=== PATIENT | female | born 1960 | race Caucasian/White ===

== ENCOUNTER → 2017-03-31 | Outpatient (CLI) | payer OTHER ==
--- NOTE | 2017-04-03 10:08 | MM ---
Reason for exam: screening (asymptomatic). Last mammogram was performed 1 year and 4 months ago. History: Patient is postmenopausal. Physical Findings: A clinical breast exam by your physician is recommended on an annual basis and results should be correlated with mammographic findings. MG Screening Mammo w CAD Bilateral CC and MLO view(s) were taken. Prior study comparison: November 23, 2015, bilateral MG 3d screening mammo w/cad. April 24, 2014, bilateral MG screening mammo w CAD. March 27, 2013, bilateral digital screening mammo w/CAD. There are scattered fibroglandular densities. No significant changes when compared with prior studies. ASSESSMENT: Negative, BI-RAD 1 RECOMMENDATION: Routine screening mammogram of both breasts in 1 year.
== END ==
LOC: RADMAMWWP 13:48
PROVIDERS: ATTEND Obstetrics & Gynecology
DX: Z12.31 Encounter for screening mammogram for malignant neoplasm of breast (principal)

== ENCOUNTER → 2019-03-07 | Outpatient (CLI) | payer OTHER ==
--- NOTE | 2019-03-08 17:37 | BD ---
EXAMINATION TYPE: Axial Bone Density DATE OF EXAM: 03/07/2019 COMPARISON: 2013 CLINICAL HISTORY: Height: 63.25 Weight: 171 FRAX RISK QUESTIONS: Alcohol (3 or more units per day): no Family History (Parent hip fracture): no Glucocorticoids (More than 3mos): no (Ex: prednisone, prednisolone, methylprednisolone, dexamethasone, and hydrocortisone). History of Fracture in Adulthood: no Secondary Osteoporosis: 1. Type 1 Diabetes: no 2. Hyperthyroidism: no 3. Menopause before 45: no 4. Malnutrition: no 5. Chronic liver disease: no Rheumatoid Arthritis: no Current Tobacco Use: no RISK FACTORS HISTORY OF: Family History of Osteoporosis: not to knowledge of patient Active: yes Diet low in dairy products/other sources of calcium: at least one serving a day Postmenopausal woman: yes Take estrogen and/or progesterone medications: no Lost more than 2 inches in height since high school: no Frequent falls: no Poor Health: no Hyperparathyroidism: no Adrenal Insufficiency: no MEDICATIONS: Prednisone or other steroids: rarely for cold/cough Thyroid Medications: no Osteoporosis Medications: no Additional Medications: Vitamin D Additional History: EXAM MEASUREMENTS: Bone mineral densitometry was performed using the [employer]ev[employer] System. Bone mineral density as measured about the Lumbar spine is: ----- L1-L4(G/cm2): 1.113 T Score Values are as follows: ----- L2: -0.2 ----- L3: -0.2 ----- L4: -0.6 ----- L1-L4: -0.6 Bone mineral density has: Decreased -4.7% since study of: 04/24/2014 Bone mineral density about the R hip (g/cm2): 0.935 Bone mineral density about the L hip (g/cm2): 0.978 T Score values are as follows: -----R Neck: -0.7 -----L Neck: -0.4 -----R Total: -0.6 -----L Total: -0.3 Bone mineral density has: Decreased -6.8% since study of: 04/24/2014 IMPRESSION: Normal (Values between +1 and -1 indicate normal bone mass). Consider repeating this study in 5 year s or sooner if there is some new clinical indication. NOTE: T-SCORE=SD OF THE YOUNG ADULT MEAN.
--- NOTE | 2019-03-11 10:01 | MM ---
Reason for exam: screening (asymptomatic). Last mammogram was performed 1 year and 11 months ago. History: Patient is postmenopausal. Physical Findings: A clinical breast exam by your physician is recommended on an annual basis and results should be correlated with mammographic findings. MG Screening Mammo w CAD Bilateral CC and MLO view(s) were taken. Prior study comparison: March 31, 2017, bilateral MG screening mammo w CAD. November 23, 2015, bilateral MG 3d screening mammo w/cad. There are scattered fibroglandular densities. No significant changes when compared with prior studies. ASSESSMENT: Benign, BI-RAD 2 RECOMMENDATION: Routine screening mammogram of both breasts in 1 year.
== END | disposition home or self-care (01) ==
LOC: RADMAMWWP 13:48
PROVIDERS: ATTEND Obstetrics & Gynecology
DX: Z12.31 Encounter for screening mammogram for malignant neoplasm of breast (principal); N95.1 Menopausal and female climacteric states
CPT/HCPCS: 77067; 77080

== ENCOUNTER 2020-01-15 07:55 | Day surgery (SDC) | payer OTHER ==
[2020-01-13 14:36] VITALS: BMI 29.3
[~2020-01-15 07:55] MED LIST: LACTATED RINGERS 1,000 ML IV SCH
[2020-01-15 08:13] VITALS: TEMP 97.2
[2020-01-15] MEDS ORDERED: LIDOCAINE 1% INJ 10MG/ML (20 ML MDV) ONE (09:08)
[2020-01-15] MEDS ORDERED: PROPOFOL 10 MG/ML 20 ML VIAL IV ONE (09:08)
--- NOTE | 2020-01-15 09:42 | P.PCN ---
Date of Procedure: 01/15/20 Procedure(s) Performed: Brief history: Patient is a pleasant 60-year-old white female scheduled for an elective upper endoscopy as well as colonoscopy as a part of evaluation of intermittent dysphagia to solids and screening for colorectal neoplasia Procedure performed: Esophagogastroduodenoscopy with biopsy Colonoscopy Preoperative diagnosis: Intermittent dysphagia to solids Screening for colon cancer Anesthesia: MAC Procedure: After informed consent was obtained from the patient was brought into the endoscopy unit and IV sedation was administered by anesthesia under continuous monitoring. Initially upper endoscopy was done. The Olympus GF 160 video endoscope was inserted inserted into the mouth and esophagus intubated without any difficulty and was gradually advanced into the stomach and duodenum and carefully examined. The bulb and second part of the duodenum appeared normal. The scope was then withdrawn into the stomach adequately insufflated with air and upon careful examination the antrum and body, cardia and fundus appeared normal. Multiple small gastric polyps which were biopsied. The scope was then withdrawn into the esophagus. Small hiatal hernia noted. The GE junction was located at 35 cm to the incisors. There was early distal esophageal stricture identified. There were linear erosions and superficial ulcerations proximal to the GE junction consistent with LA grade C reflux esophagitis.. Rest of the esophagus appeared normal. Patient tolerated the procedure well. At this time the patient continued to remain sedation. Initial digital rectal examination was normal. Olympus CF 160 video colonoscope was then inserted into the rectum and gradually advanced to the cecum without any difficulty. Careful examination was performed as the scope was gradually being withdrawn. The prep was excellent. The cecum, ascending colon, transverse colon, descending colon, sigmoid colon and rectum appeared normal. Retroflexion was performed in the rectum and no lesions were noted. Patient tolerated the procedure well. Impression: 1. Upper endoscopy revealed linear erosions and ulcerations in the distal esophagus consistent with LA grade C reflux esophagitis, small hiatal hernia and gastric polyps 2. Colonoscopy was within normal limits with no evidence of colorectal neoplasia Recommendations: Findings of this examination were discussed with the patient as well as her family. She'll follow with the biopsy results. She'll be started on Prilosec 20 mg twice daily for 8 weeks and she'll be seen in office. She was briefly educated about diet modification antireflux measures. She was advised to have a repeat screening colonoscopy in 10 years.
[2020-01-15 09:51] VITALS: RESP 16
[2020-01-15 10:00] VITALS: BP 123/73; PULSE 79
== END 2020-01-15 10:40 | disposition home or self-care (01) ==
LOC: ORWHC2ENDO 07:55
PROVIDERS: ATTEND Internal Medicine Gastroenterology
DX: Z12.11 Encounter for screening for malignant neoplasm of colon (principal); K31.7 Polyp of stomach and duodenum; K44.9 Diaphragmatic hernia without obstruction or gangrene; R13.10 Dysphagia, unspecified; K22.2 Esophageal obstruction; K22.10 Ulcer of esophagus without bleeding; K21.9 Gastro-esophageal reflux disease without esophagitis; J45.909 Unspecified asthma, uncomplicated; F41.9 Anxiety disorder, unspecified; Z79.899 Other long term (current) drug therapy; Z90.49 Acquired absence of other specified parts of digestive tract; Z98.890 Other specified postprocedural states; Z90.89 Acquired absence of other organs; Z87.448 Personal history of other diseases of urinary system; Z94.81 Bone marrow transplant status
CPT/HCPCS: 45378; 43239; 88305; J2001; J2704

== ENCOUNTER 2020-02-25 22:56 | Inpatient (IN) | payer OTHER ==
[2020-02-25] MEDS ORDERED: SODIUM CHLORIDE 0.9% 500 ML 500 ML IV ONE (23:30)
--- NOTE | 2020-02-25 23:35 | ED ---
Altered Mental Status HPI - General Chief Complaint: Altered Mental Status Stated Complaint: Altered Mental Status Time Seen by Provider: 02/25/20 23:00 Source: patient, EMS Mode of arrival: EMS Limitations: altered mental status - History of Present Illness Initial Comments: This patient is a 60-year-old woman who presents to be evaluated for a change in mental status. When I asked the patient, she states that she is not sure why she is here. She thinks she may have been having some anxiety. The patient's relates that the patient has been more forgetful over the past 3 or 4 days. She had an episode tonight where she seemed very stressed and tearful and she was more confused than usual. They do note that the patient had started Xanax for anxiety within the past couple of weeks or so. The remainder the review of systems is negative. MD Complaint: altered mental status, confusion -: days(s) Consistency of Symptoms: waxing and waning Context: change in medication Associated Symptoms: denies other symptoms - Related Data Home Medications Medication Instructions Recorded Confirmed Albuterol Inhaler [Ventolin Hfa 1 puff INHALATION RT-TID 01/13/20 02/26/20 Inhaler] Cholecalciferol [Vitamin D3] 400 unit PO DAILY 01/13/20 02/26/20 Cranberry Fruit Extract [Cranberry] 500 mg PO DAILY 01/13/20 02/26/20 ALPRAZolam [Xanax] 0.25 mg PO TID PRN 02/26/20 02/26/20 [place]-3 Fatty Acids/Fish Oil [Fish 1 cap PO DAILY 02/26/20 02/26/20 Oil 1,000 mg Softgel] Omeprazole [PriLOSEC] 20 mg PO AC-BID 02/26/20 02/26/20 Previous Rx's Medication Instructions Recorded Aspirin 81 mg PO DAILY #30 tab 02/26/20 Atorvastatin [Lipitor] 20 mg PO DAILY #30 tab 02/26/20 busPIRone HCl [Buspar] 10 mg PO DAILY #30 tab 02/26/20 Allergies Allergy/AdvReac Type Severity Reaction Status Date / Time No Known Allergies Allergy Verified 02/26/20 08:25 Review of Systems ROS Statement: Those systems with pertinent positive or pertinent negative responses have been documented in the HPI. ROS Other: All systems not noted in ROS Statement are negative. Constitutional: Denies: fever, chills Respiratory: Denies: cough, dyspnea Cardiovascular: Denies: chest pain, edema, syncope Gastrointestinal: Reports: nausea, vomiting, diarrhea, other (Patient did have some vomiting and diarrhea approximately 2 or 3 days ago). Denies: abdominal pain, hematemesis, melena, hematochezia Genitourinary: Denies: dysuria, hematuria Musculoskeletal: Denies: back pain Skin: Denies: rash Neurological: Reports: confusion. Denies: headache, weakness, numbness Past Medical History Past Medical History: Asthma, GERD/Reflux Additional Past Medical History / Comment(s): DYSPHAGIA, Hemorrhoids History of Any Multi-Drug Resistant Organisms: None Reported Past Surgical History: Appendectomy, Tonsillectomy Additional Past Surgical History / Comment(s): MULT EAR SX CHARISMA EARS, EGD Past Anesthesia/Blood Transfusion Reactions: No Reported Reaction Additional Past Anesthesia/Blood Transfusion Reaction / Comment(s): Takes longer to wake up. Past Psychological History: Anxiety Past Alcohol Use History: Occasional Past Drug Use History: None Reported - Past Family History Mother Family Medical History: Cancer General Exam Limitations: altered mental status General appearance: alert, in no apparent distress, anxious Head exam: Present: atraumatic, normocephalic Eye exam: Present: normal appearance. Absent: scleral icterus, conjunctival injection ENT exam: Present: normal oropharynx Neck exam: Present: normal inspection, full ROM Respiratory exam: Present: normal lung sounds bilaterally. Absent: respiratory distress, wheezes, rales, rhonchi, stridor Cardiovascular Exam: Present: regular rate, normal rhythm, normal heart sounds. Absent: systolic murmur, diastolic murmur, rubs, gallop GI/Abdominal exam: Present: soft. Absent: distended, tenderness, guarding, rebound, rigid, mass, pulsatile mass Extremities exam: Present: normal inspection, normal capillary refill. Absent: pedal edema, calf tenderness Neurological exam: Present: alert, oriented X3, CN II-XII intact. Absent: motor sensory deficit Psychiatric exam: Present: anxious Skin exam: Present: warm, dry, intact, normal color. Absent: rash Course Vital Signs 02/25/20 02/26/20 02/26/20 22:57 02:24 02:50 Temperature 98.1 F 98.1 F Pulse Rate 103 H Pulse Rate [ 100 100 Pulse Oximetery ] Respiratory 20 18 19 Rate Blood Pressure 122/63 Blood Pressure 127/81 [Right Arm] O2 Sat by Pulse 97 98 Oximetry 02/26/20 02/26/20 02/26/20 03:17 08:15 11:35 Temperature 97.6 F 98.7 F 98.7 F Pulse Rate Pulse Rate [ 95 100 92 Pulse Oximetery ] Respiratory 19 18 18 Rate Blood Pressure Blood Pressure 135/79 125/73 102/47 [Right Arm] O2 Sat by Pulse 98 97 96 Oximetry 02/26/20 02/26/20 02/26/20 12:07 12:17 15:30 Temperature 98.3 F Pulse Rate 100 92 Pulse Rate [ 80 Pulse Oximetery ] Respiratory 18 Rate Blood Pressure Blood Pressure 117/72 [Right Arm] O2 Sat by Pulse 98 Oximetry Medical Decision Making - Lab Data Result diagrams: 02/25/20 23:34 02/25/20 23:34 Lab Results 02/25/20 02/25/20 02/25/20 Range/Units 23:34 23:34 23:34 WBC 8.0 (3.8-10.6) k/uL RBC 4.42 (3.80-5.40) m/uL Hgb 12.6 (11.4-16.0) gm/dL Hct 40.4 (34.0-46.0) % MCV 91.4 (80.0-100.0) fL MCH 28.5 (25.0-35.0) pg MCHC 31.2 (31.0-37.0) g/dL RDW 13.3 (11.5-15.5) % Plt Count 307 (150-450) k/uL Neutrophils % Not Reportable Neutrophils % (Manual) 64 % Band Neutrophils % 1 % Lymphocytes % Not Reportable Lymphocytes % (Manual) 27 % Monocytes % Not Reportable Monocytes % (Manual) 6 % Eosinophils % Not Reportable Eosinophils % (Manual) 2 % Basophils % Not Reportable Neutrophils # Not Reportable Neutrophils # (Manual) 5.20 (1.3-7.7) k/uL Lymphocytes # Not Reportable Lymphocytes # (Manual) 2.16 (1.0-4.8) k/uL Monocytes # Not Reportable Monocytes # (Manual) 0.48 (0-1.0) k/uL Eosinophils # Not Reportable Eosinophils # (Manual) 0.16 (0-0.7) k/uL Basophils # Not Reportable Nucleated RBCs 0 (0-0) /100 WBC Manual Slide Review Performed PT 10.2 (9.0-12.0) sec INR 1.0 (<1.2) APTT 22.7 (22.0-30.0) sec Sodium (137-145) mmol/L Potassium (3.5-5.1) mmol/L Chloride (98-107) mmol/L Carbon Dioxide (22-30) mmol/L Anion Gap mmol/L BUN (7-17) mg/dL Creatinine (0.52-1.04) mg/dL Est GFR (CKD-EPI)AfAm (>60 ml/min/1.73 sqM) Est GFR (CKD-EPI)NonAf (>60 ml/min/1.73 sqM) Glucose (74-99) mg/dL POC Glucose (mg/dL) (75-99) mg/dL POC Glu Hydraulic Riveter ID Calcium (8.4-10.2) mg/dL Total Bilirubin (0.2-1.3) mg/dL AST (14-36) U/L ALT (4-34) U/L Alkaline Phosphatase (38-126) U/L Ammonia (<30) umol/L Troponin I (0.000-0.034) ng/mL Total Protein (6.3-8.2) g/dL Albumin (3.5-5.0) g/dL Urine Color Light Yellow Urine Appearance Cloudy H (Clear) Urine pH 6.0 (5.0-8.0) Ur Specific [place] 1.008 (1.001-1.035) Urine Protein Negative (Negative) Urine Glucose (UA) Negative (Negative) Urine Ketones Trace H (Negative) Urine Blood Small H (Negative) Urine Nitrite Negative (Negative) Urine Bilirubin Negative (Negative) Urine Urobilinogen <2.0 (<2.0) mg/dL Ur Leukocyte Esterase Moderate H (Negative) Urine RBC 6 H (0-5) /hpf Urine WBC 17 H (0-5) /hpf Ur Squamous Epith Cells 1 (0-4) /hpf Urine Bacteria Occasional H (None) /hpf Urine Mucus Rare H (None) /hpf Urine Opiates Screen Not Detected (NotDetected) Ur Oxycodone Screen Not Detected (NotDetected) Urine Methadone Screen Not Detected (NotDetected) Ur Propoxyphene Screen Not Detected (NotDetected) Ur Barbiturates Screen Not Detected (NotDetected) U Tricyclic Antidepress Not Detected (NotDetected) Ur Phencyclidine Scrn Not Detected (NotDetected) Ur Amphetamines Screen Not Detected (NotDetected) U Methamphetamines Scrn Not Detected (NotDetected) U Benzodiazepines Scrn Detected H (NotDetected) Urine Cocaine Screen Not Detected (NotDetected) U Marijuana (THC) Screen Not Detected (NotDetected) Serum Alcohol mg/dL 02/25/20 02/25/20 02/25/20 Range/Units 23:34 23:34 23:34 WBC (3.8-10.6) k/uL RBC (3.80-5.40) m/uL Hgb (11.4-16.0) gm/dL Hct (34.0-46.0) % MCV (80.0-100.0) fL MCH (25.0-35.0) pg MCHC (31.0-37.0) g/dL RDW (11.5-15.5) % Plt Count (150-450) k/uL Neutrophils % Neutrophils % (Manual) % Band Neutrophils % % Lymphocytes % Lymphocytes % (Manual) % Monocytes % Monocytes % (Manual) % Eosinophils % Eosinophils % (Manual) % Basophils % Neutrophils # Neutrophils # (Manual) (1.3-7.7) k/uL Lymphocytes # Lymphocytes # (Manual) (1.0-4.8) k/uL Monocytes # Monocytes # (Manual) (0-1.0) k/uL Eosinophils # Eosinophils # (Manual) (0-0.7) k/uL Basophils # Nucleated RBCs (0-0) /100 WBC Manual Slide Review PT (9.0-12.0) sec INR (<1.2) APTT (22.0-30.0) sec Sodium 139 (137-145) mmol/L Potassium 3.7 (3.5-5.1) mmol/L Chloride 105 (98-107) mmol/L Carbon Dioxide 25 (22-30) mmol/L Anion Gap 9 mmol/L BUN 14 (7-17) mg/dL Creatinine 0.73 (0.52-1.04) mg/dL Est GFR (CKD-EPI)AfAm >90 (>60 ml/min/1.73 sqM) Est GFR (CKD-EPI)NonAf 89 (>60 ml/min/1.73 sqM) Glucose 103 H (74-99) mg/dL POC Glucose (mg/dL) (75-99) mg/dL POC Glu Hydraulic Riveter ID Calcium 9.0 (8.4-10.2) mg/dL Total Bilirubin 0.4 (0.2-1.3) mg/dL AST 22 (14-36) U/L ALT 18 (4-34) U/L Alkaline Phosphatase 97 (38-126) U/L Ammonia <9 (<30) umol/L Troponin I 0.098 H* (0.000-0.034) ng/mL Total Protein 5.8 L (6.3-8.2) g/dL Albumin 3.3 L (3.5-5.0) g/dL Urine Color Urine Appearance (Clear) Urine pH (5.0-8.0) Ur Specific [place] (1.001-1.035) Urine Protein (Negative) Urine Glucose (UA) (Negative) Urine Ketones (Negative) Urine Blood (Negative) Urine Nitrite (Negative) Urine Bilirubin (Negative) Urine Urobilinogen (<2.0) mg/dL Ur Leukocyte Esterase (Negative) Urine RBC (0-5) /hpf Urine WBC (0-5) /hpf Ur Squamous Epith Cells (0-4) /hpf Urine Bacteria (None) /hpf Urine Mucus (None) /hpf Urine Opiates Screen (NotDetected) Ur Oxycodone Screen (NotDetected) Urine Methadone Screen (NotDetected) Ur Propoxyphene Screen (NotDetected) Ur Barbiturates Screen (NotDetected) U Tricyclic Antidepress (NotDetected) Ur Phencyclidine Scrn (NotDetected) Ur Amphetamines Screen (NotDetected) U Methamphetamines Scrn (NotDetected) U Benzodiazepines Scrn (NotDetected) Urine Cocaine Screen (NotDetected) U Marijuana (THC) Screen (NotDetected) Serum Alcohol <10 mg/dL 02/26/20 Range/Units 00:02 WBC (3.8-10.6) k/uL RBC (3.80-5.40) m/uL Hgb (11.4-16.0) gm/dL Hct (34.0-46.0) % MCV (80.0-100.0) fL MCH (25.0-35.0) pg MCHC (31.0-37.0) g/dL RDW (11.5-15.5) % Plt Count (150-450) k/uL Neutrophils % Neutrophils % (Manual) % Band Neutrophils % % Lymphocytes % Lymphocytes % (Manual) % Monocytes % Monocytes % (Manual) % Eosinophils % Eosinophils % (Manual) % Basophils % Neutrophils # Neutrophils # (Manual) (1.3-7.7) k/uL Lymphocytes # Lymphocytes # (Manual) (1.0-4.8) k/uL Monocytes # Monocytes # (Manual) (0-1.0) k/uL Eosinophils # Eosinophils # (Manual) (0-0.7) k/uL Basophils # Nucleated RBCs (0-0) /100 WBC Manual Slide Review PT (9.0-12.0) sec INR (<1.2) APTT (22.0-30.0) sec Sodium (137-145) mmol/L Potassium (3.5-5.1) mmol/L Chloride (98-107) mmol/L Carbon Dioxide (22-30) mmol/L Anion Gap mmol/L BUN (7-17) mg/dL Creatinine (0.52-1.04) mg/dL Est GFR (CKD-EPI)AfAm (>60 ml/min/1.73 sqM) Est GFR (CKD-EPI)NonAf (>60 ml/min/1.73 sqM) Glucose (74-99) mg/dL POC Glucose (mg/dL) 114 H (75-99) mg/dL POC Glu Hydraulic Riveter ID [place] Calcium (8.4-10.2) mg/dL Total Bilirubin (0.2-1.3) mg/dL AST (14-36) U/L ALT (4-34) U/L Alkaline Phosphatase (38-126) U/L Ammonia (<30) umol/L Troponin I (0.000-0.034) ng/mL Total Protein (6.3-8.2) g/dL Albumin (3.5-5.0) g/dL Urine Color Urine Appearance (Clear) Urine pH (5.0-8.0) Ur Specific [place] (1.001-1.035) Urine Protein (Negative) Urine Glucose (UA) (Negative) Urine Ketones (Negative) Urine Blood (Negative) Urine Nitrite (Negative) Urine Bilirubin (Negative) Urine Urobilinogen (<2.0) mg/dL Ur Leukocyte Esterase (Negative) Urine RBC (0-5) /hpf Urine WBC (0-5) /hpf Ur Squamous Epith Cells (0-4) /hpf Urine Bacteria (None) /hpf Urine Mucus (None) /hpf Urine Opiates Screen (NotDetected) Ur Oxycodone Screen (NotDetected) Urine Methadone Screen (NotDetected) Ur Propoxyphene Screen (NotDetected) Ur Barbiturates Screen (NotDetected) U Tricyclic Antidepress (NotDetected) Ur Phencyclidine Scrn (NotDetected) Ur Amphetamines Screen (NotDetected) U Methamphetamines Scrn (NotDetected) U Benzodiazepines Scrn (NotDetected) Urine Cocaine Screen (NotDetected) U Marijuana (THC) Screen (NotDetected) Serum Alcohol mg/dL - EKG Data -: EKG Interpreted by Me EKG shows normal: sinus rhythm (With one PVC, rate 97 bpm), axis (Normal), intervals (VT interval 126 ms, QTC 533 ms, both normal. QRS duration 140 ms, prolonged consistent with right bundle-branch block), QRS complexes (Right bundle-branch block morphology), ST-T waves (Normal) Disposition Clinical Impression: Elevated troponin I level Narrative: Possible NSTEMI Disposition: ADMITTED IP TO [facility] Condition: Fair Is patient prescribed a controlled substance at d/c from ED?: No
[2020-02-25 23:52] LABS: HCT 40.4 % (34.0-46.0); HGB 12.6 gm/dL (11.4-16.0); MCH 28.5 pg (25.0-35.0); MCHC 31.2 g/dL (31.0-37.0); MCV 91.4 fL (80.0-100.0); Mean Platelet Volume 7.5; Platelet Count 307 k/uL (150-450); RBC 4.42 m/uL (3.80-5.40); RDW 13.3 % (11.5-15.5)
[2020-02-26] LABS: Appearance,Urine Cloudy (Clear); Bacteria,Urine Occasional /hpf; Bilirubin,Urine Negative (Negative); Blood,Urine Small (Negative); Color,Urine Light Yellow; Glucose,Urine (UA) Negative (Negative); Ketones,Urine Trace (Negative); Leukocyte Esterase,Urine Moderate (Negative); Mucus,Urine Rare /hpf; Nitrite,Urine Negative (Negative); Protein,Urine Negative (Negative); RBC,Urine 6 /hpf (0-5); Specific Gravity,Urine 1.008 (1.001-1.035); Squamous Epithelial Cell,Urine 1 /hpf (0-4); Urobilinogen,Urine <2.0 mg/dL (<2.0); WBC,Urine 17 /hpf (0-5)
[2020-02-26 00:02] LABS: ALT 18 U/L (4-34); AST 22 U/L (14-36); African American GFR (CKD) >90 (>60 ml/min/1.73 sqM); Albumin 3.3 g/dL (3.5-5.0); Alcohol <10 mg/dL; Alkaline Phosphatase 97 U/L (38-126); Anion Gap 9 mmol/L; Blood Urea Nitrogen 14 mg/dL (7-17); Carbon Dioxide 25 mmol/L (22-30); Chloride 105 mmol/L (98-107); Glucose 103 mg/dL (74-99); Non-African American GFR(CKD) 89 (>60 ml/min/1.73 sqM); Potassium 3.7 mmol/L (3.5-5.1); Sodium 139 mmol/L (137-145); Total Bilirubin 0.4 mg/dL (0.2-1.3); Total Protein 5.8 g/dL (6.3-8.2)
[2020-02-26 00:05] LABS: Partial Thromboplastin Time 22.7 sec (22.0-30.0); Prothrombin Time 10.2 sec (9.0-12.0)
[2020-02-26 00:05] LABS: Glucose,Whole Blood 114 mg/dL (75-99)
[2020-02-26 00:09] LABS: Amphetamine Screen,Urine Not Detected (NotDetected); Barbiturate Screen,Urine Not Detected (NotDetected); Benzodiazepines Screen,Urine Detected (NotDetected); Cocaine Screen,Urine Not Detected (NotDetected); Methadone Screen, Urine Not Detected (NotDetected); Opiate Screen,Urine Not Detected (NotDetected); Oxycodone Screen, Urine Not Detected (NotDetected); Phencyclidine Screen,Urine Not Detected (NotDetected); Tricyclic Antidepressant,Urine Not Detected (NotDetected); Urn Cannabinoid Scrn Not Detected (NotDetected)
--- NOTE | 2020-02-26 00:31 | CT ---
EXAMINATION TYPE: CT brain wo con DATE OF EXAM: 02/26/2020 COMPARISON: None HISTORY: AMS CT DLP: 1142.4 mGycm Automated exposure control for dose reduction was used. Ventricles have normal size. There is no mass effect nor midline shift. There is no sign of intracran ial hemorrhage. Calvarium is intact. There is no evidence of cerebral edema. IMPRESSION: Negative unenhanced head CT scan.
--- NOTE | 2020-02-26 00:32 | XR ---
EXAMINATION TYPE: XR chest 2V DATE OF EXAM: 02/26/2020 COMPARISON: NONE HISTORY: Altered mental status TECHNIQUE: 2 views FINDINGS: There is no heart failure nor confluent pneumonic infiltrate. There are no hilar masses. Th ere are chest leads. There is small linear density at the lateral left lung base. Bony thorax is inta ct. IMPRESSION: Minimal subsegmental atelectasis left lung base. Otherwise negative exam. Normal heart.
[2020-02-26 00:38] LABS: Band Neutrophils % 1 %; Eosinophils # (M) 0.16 k/uL (0-0.7); Lymphocytes # (M) 2.16 k/uL (1.0-4.8); Monocytes # (M) 0.48 k/uL (0-1.0); Neutrophils % (M) 64 %; Nucleated Red Blood Cells 0 /100 WBC (0-0); Total Cells Counted 100
[2020-02-26] MEDS ORDERED: ENOXAPARIN 80 MG/0.8 ML SYRINGE SQ STA (01:03)
[2020-02-26] MEDS ORDERED: SULFAMETHOX-TMP 800-160MG 1 EACH TAB PO STA (01:04)
[2020-02-26] MEDS ORDERED: NITROGLYCERIN SL TABS 0.4 MG TAB SUBLINGUAL PRN (01:06)
--- NOTE | 2020-02-26 03:46 | P.HPIM ---
History of Present Illness H&P Date: 02/26/20 Chief Complaint: confusion 60-year-old female with no significant past medical history Patient comes in with her who reported that the patient has been forgetful very anxious and restless over the past 3-4 days. Upon further questioning it seems like she is having some social issues at home where her son of 29-year-old is leaving the house and the mother is extremely worried about him that she admits that she worries about a lot of things that she recognizes s ometimes it is unreasonable to be worried about. Her reported that she's been forgetting fridge door open, the stove on and that's unusual of her. She otherwise denies any chest pain headache fevers chills denies any upper respiratory infection like symptoms denies any coughing nausea vomiting abdominal pain or GI bleeding. However she does report that she gets attacks of palpitations and sometimes when the anxiety kicks in she gets a panic attack and feels some difficulty breathing she's been prescribed some Xanax about a month ago that she's been using without much help.. She denies any recent traveling hospitalization or sick contacts. Upon further evaluation in the ED she was found to have elevated troponins she currently denies any chest pain EKG showed right bundle branch block and tachycardia patient admitted for close monitoring and ruling out ACS Review of Systems Pertinent positives as noted in HPI. All other systems were reviewed and are negative Past Medical History Past Medical History: Asthma, GERD/Reflux Additional Past Medical History / Comment(s): DYSPHAGIA, Hemorrhoids History of Any Multi-Drug Resistant Organisms: None Reported Past Surgical History: Appendectomy, Tonsillectomy Additional Past Surgical History / Comment(s): MULT EAR SX CHARISMA EARS, EGD Past Anesthesia/Blood Transfusion Reactions: No Reported Reaction Additional Past Anesthesia/Blood Transfusion Reaction / Comment(s): Takes longer to wake up. Past Psychological History: Anxiety Additional Psychological History / Comment(s): pt was started on xanax 2 weeks ago for anxiety. Smoking Status: Never smoker Past Drug Use History: None Reported - Past Family History Mother Family Medical History: Cancer Medications and Allergies Home Medications Medication Instructions Recorded Confirmed Type valACYclovir HCL [Valacyclovir] 500 mg PO DAILY PRN 10/16/14 01/15/20 History Albuterol Inhaler [Ventolin Hfa 1 puff INHALATION RT-TID 01/13/20 01/15/20 History Inhaler] Cholecalciferol [Vitamin D3] 400 unit PO DAILY@1200 01/13/20 01/13/20 History Clotrimazole 10 mg MUCOUS MEM 5XD 01/13/20 01/15/20 History Cranberry Fruit Extract [Cranberry] 500 mg PO DAILY 01/13/20 01/13/20 History Nystatin [Nystop] 1 applic TOPICAL BID 01/13/20 01/13/20 History busPIRone HCL 10 mg PO DAILY 01/13/20 01/15/20 History Allergies Allergy/AdvReac Type Severity Reaction Status Date / Time No Known Allergies Allergy Verified 02/25/20 23:05 Physical Exam Vitals: Vital Signs Temp Pulse Pulse Resp BP BP Pulse Ox 02/26/20 03:17 97.6 F 95 19 135/79 98 02/26/20 02:50 100 19 02/26/20 02:24 98.1 F 100 18 127/81 98 02/25/20 22:57 98.1 F 103 H 20 122/63 97 Intake and Output 02/25/20 02/25/20 02/26/20 14:59 22:59 06:59 Intake Total 0 Balance 0 Intake: Oral 0 Other: Voiding Method Toilet # Voids 1 Weight 76.204 kg 76.5 kg Constitutional: No acute distress, conversant, pleasant Eyes: Anicteric sclerae, moist conjunctiva, Pupils equal round reactive to light ENMT: NC/AT Oropharynx clear, no erythema, or exudates Neck: Supple, FROM, no masses, or JVD No carotid bruits No thyromegaly Lungs: Clear to auscultation Clear to percussion Normal respiratory effort, no accessory muscle use Cardiovascular: Heart regular in rate and rhythm, No murmurs, gallops, or rubs No peripheral edema Abdominal: Soft Nontender, no guarding, rebound or rigidity Abdomen moving with respiration Normoactive bowel sounds No hepatomegaly, No splenomegaly No palpable mass No abdominal wall hernia noted Skin: Normal temperature, tone, texture, turgor No induration No subcutaneous nodules No rash, lesions No ulcers Extremities: No digital cyanosis No clubbing Pedal pulses intact and symmetrical Radial pulses intact and symmetrical No calf tenderness Psychiatric: Alert and oriented to person, place and time Appropriate affect fair judgement Neuro Muscles Strength 5/5 in all 4 extremities Sensation to light touch grossly present throughout Cranial nerves II-XII grossly intact No focal sensory deficits Lymphatics: no palpable cervical or supraclavicular , or inguinal lymph nodes Results CBC & Chem 7: 02/25/20 23:34 02/25/20 23:34 Labs: Abnormal Lab Results - Last 24 Hours (Table) 02/25/20 02/25/20 02/25/20 Range/Units 23:34 23:34 23:34 Glucose 103 H (74-99) mg/dL POC Glucose (mg/dL) (75-99) mg/dL Troponin I 0.098 H* (0.000-0.034) ng/mL Total Protein 5.8 L (6.3-8.2) g/dL Albumin 3.3 L (3.5-5.0) g/dL Urine Appearance Cloudy H (Clear) Urine Ketones Trace H (Negative) Urine Blood Small H (Negative) Ur Leukocyte Esterase Moderate H (Negative) Urine RBC 6 H (0-5) /hpf Urine WBC 17 H (0-5) /hpf Urine Bacteria Occasional H (None) /hpf Urine Mucus Rare H (None) /hpf U Benzodiazepines Scrn Detected H (NotDetected) 02/26/20 Range/Units 00:02 Glucose (74-99) mg/dL POC Glucose (mg/dL) 114 H (75-99) mg/dL Troponin I (0.000-0.034) ng/mL Total Protein (6.3-8.2) g/dL Albumin (3.5-5.0) g/dL Urine Appearance (Clear) Urine Ketones (Negative) Urine Blood (Negative) Ur Leukocyte Esterase (Negative) Urine RBC (0-5) /hpf Urine WBC (0-5) /hpf Urine Bacteria (None) /hpf Urine Mucus (None) /hpf U Benzodiazepines Scrn (NotDetected) Thrombosis Risk Factor Assmnt - Choose All That Apply Any of the Below Risk Factors Present?: Yes Each Factor Represents 1 point: Abnormal pulmonary function (COPD) Other Risk Factors: Yes Each Risk Factor Represents 2 Points: Age 61-74 years Other congenital or acquired thrombophilia - If yes, enter type in comment: No Thrombosis Risk Factor Assessment Total Risk Factor Score: 3 Thrombosis Risk Factor Assessment Level: Moderate Risk Assessment and Plan Assessment: Elevated troponins rule out ACS Increased confusion and forgetfulness Anxiety and panic attacks History of GERD and asthma Plan Aspirin and statin Monitor cardiac enzymes trend troponins Cardiac monitoring Cardiology consult Xanax when necessary for anxiety PPI Albuterol inhaler as needed Check TSH Check lipid profile CODE STATUS: Full code DVT prophylaxis: Heparin subcu 3 times a day Discussed with: Patient, ER, RN Anticipated length of stay less than [address]: Home A total of 75 minutes was spent on the care of this complex patient more than 50% of the time was spent in counseling and care coordination.
[2020-02-26] MEDS: SODIUM CHLORIDE 0.9% 1,000 ML IV SCH ×3 (03:59→23:29)
[2020-02-26] MEDS: BENZONATATE 100 MG CAP PO PRN ×3 (04:08→21:02)
[2020-02-26] MEDS: ALPRAZolam 1 MG TAB PO PRN ×3 (04:08→23:29)
[2020-02-26] MEDS: ALBUTEROL NEBULIZED 2.5 MG/3 ML INHALATION SCH ×3 (08:32→20:52)
--- NOTE | 2020-02-26 09:47 | P.CRDCN ---
History of Present Illness Consult date: 02/26/20 Requesting physician: Dominick Muller Reason for Consult (text): elevated troponin Chief complaint: forgetfulness, cough History of present illness: This is a 60-year-old female with past history of GERD, asthma and anxiety. Denies history of hypertension, hyperlipidemia or diabetes. Denies family history of coronary artery disease. Has recently been experiencing worsening anxiety and was initiated on Xanax by her PCP couple weeks ago. She was brought into the emergency department by her who has been noticing her to be coming more forgetful with worsening anxiety and restlessness over the past 3-4 days. She's also been complaining of a cough with clear sputum. Denies any fever or chills at home but says she is always cold. She is also noticed decrease in her appetite and some weight loss. We are asked to see the patient in consultation due to abnormal troponin levels. She's had no complaints of chest discomfort, shortness of breath or diaphoresis. She has been experiencing some reflux with indigestion and some nausea for which she was recently started on omeprazole. Upon presentation EKG showed sinus rhythm with PACs and right bundle branch block. Computed tomography scan of the brain was negative. Chest x-ray showed minimal subsegmental atelectasis left lung base, otherwise negative exam, normal heart. Vital signs have been stable. Laboratory values show white blood cell count 8000, hemoglobin 12.6, sodium 139, potassium 3.7, BUN 14, creatinine 0.73, TSH 2.13 and troponins of 0.098, 0.092 and 0.082. Urinalysis showed evidence of urinary tract infection and toxicology was positive for benzodiazepines in the urine. Past Medical History Past Medical History: Asthma, GERD/Reflux Additional Past Medical History / Comment(s): DYSPHAGIA, Hemorrhoids History of Any Multi-Drug Resistant Organisms: None Reported Past Surgical History: Appendectomy, Tonsillectomy Additional Past Surgical History / Comment(s): MULT EAR SX CHARISMA EARS, EGD Past Anesthesia/Blood Transfusion Reactions: No Reported Reaction Additional Past Anesthesia/Blood Transfusion Reaction / Comment(s): Takes longer to wake up. Past Psychological History: Anxiety Additional Psychological History / Comment(s): pt was started on xanax 2 weeks ago for anxiety. Smoking Status: Never smoker Past Drug Use History: None Reported - Past Family History Mother Family Medical History: Cancer Medications and Allergies Home Medications Medication Instructions Recorded Confirmed Type Albuterol Inhaler [Ventolin Hfa 1 puff INHALATION RT-TID 01/13/20 02/26/20 History Inhaler] Cholecalciferol [Vitamin D3] 400 unit PO DAILY 01/13/20 02/26/20 History Cranberry Fruit Extract [Cranberry] 500 mg PO DAILY 01/13/20 02/26/20 History ALPRAZolam [Xanax] 0.25 mg PO TID PRN 02/26/20 02/26/20 History [place]-3 Fatty Acids/Fish Oil [Fish 1 cap PO DAILY 02/26/20 02/26/20 History Oil 1,000 mg Softgel] Omeprazole [PriLOSEC] 20 mg PO AC-BID 02/26/20 02/26/20 History Allergies Allergy/AdvReac Type Severity Reaction Status Date / Time No Known Allergies Allergy Verified 02/26/20 08:25 Physical Exam Vitals: Vital Signs Temp Pulse Pulse Resp BP BP Pulse Ox 02/26/20 08:15 98.7 F 100 18 125/73 97 02/26/20 03:17 97.6 F 95 19 135/79 98 02/26/20 02:50 100 19 02/26/20 02:24 98.1 F 100 18 127/81 98 02/25/20 22:57 98.1 F 103 H 20 122/63 97 Intake and Output 02/25/20 02/26/20 02/26/20 22:59 06:59 14:59 Intake Total 0 Balance 0 Intake: Oral 0 Other: Voiding Method Toilet # Voids 1 Weight 76.204 kg 77 kg PHYSICAL EXAMINATION: This is a 60-year-old female in no apparent distress at the time of my examination. VITAL SIGNS: Blood pressure 125/73, heart rate 100, respirations 18, temp 98.7F. Patient is 97 % on room air. HEENT: Head is atraumatic, normocephalic. Pupils are equal, round. Sclerae anicteric. Conjunctivae are clear. Mucous membranes of the mouth are moist. Neck is supple. There is no elevated jugular venous pressure. No carotid bruit is heard. CHEST EXAMINATION: Clear to auscultation bilaterally. No wheezes rales or rhonchi. Respirations even and nonlabored. HEART EXAMINATION: Heart regular, positive S1 and S2. No S3. No S4. No clicks, rubs or murmurs. ABDOMEN: Soft, nontender. Bowel sounds are heard. No organomegaly noted. EXTREMITIES: 2+ peripheral pulses with no evidence of peripheral edema and no calf tenderness noted. NEUROLOGIC EXAMINATION: Patient is awake, alert and oriented x3. Results 02/25/20 23:34 02/25/20 23:34 Cardiac Enzymes 02/25/20 02/25/20 02/26/20 Range/Units 23:34 23:34 02:57 AST 22 (14-36) U/L Troponin I 0.098 H* 0.092 H* (0.000-0.034) ng/mL 02/26/20 Range/Units 05:26 AST (14-36) U/L Troponin I 0.082 H* (0.000-0.034) ng/mL Coagulation 02/25/20 Range/Units 23:34 PT 10.2 (9.0-12.0) sec APTT 22.7 (22.0-30.0) sec CBC 02/25/20 Range/Units 23:34 WBC 8.0 (3.8-10.6) k/uL RBC 4.42 (3.80-5.40) m/uL Hgb 12.6 (11.4-16.0) gm/dL Hct 40.4 (34.0-46.0) % Plt Count 307 (150-450) k/uL Comprehensive Metabolic Panel 02/25/20 Range/Units 23:34 Sodium 139 (137-145) mmol/L Potassium 3.7 (3.5-5.1) mmol/L Chloride 105 (98-107) mmol/L Carbon Dioxide 25 (22-30) mmol/L BUN 14 (7-17) mg/dL Creatinine 0.73 (0.52-1.04) mg/dL Glucose 103 H (74-99) mg/dL Calcium 9.0 (8.4-10.2) mg/dL AST 22 (14-36) U/L ALT 18 (4-34) U/L Alkaline Phosphatase 97 (38-126) U/L Total Protein 5.8 L (6.3-8.2) g/dL Albumin 3.3 L (3.5-5.0) g/dL Current Medications Generic Name Dose Route Start Last Admin Trade Name Freq PRN Reason Stop Dose Admin Albuterol Sulfate 2.5 mg 02/26/20 08:00 02/26/20 08:32 Ventolin Nebulized INHALATION Not Given RT-TID TALON Alprazolam 1 mg 02/26/20 03:37 02/26/20 04:08 Xanax PO 1 mg TID PRN Administration Anxiety Aspirin 325 mg 02/27/20 09:00 Aspirin PO DAILY TALON Atorvastatin Calcium 20 mg 02/26/20 09:00 Lipitor PO DAILY TALON Benzonatate 200 mg 02/26/20 03:56 02/26/20 04:08 Tessalon Perles PO 200 mg TID PRN Administration Cough Buspirone HCl 10 mg 02/26/20 09:00 Buspar PO DAILY TALON Cholecalciferol 400 unit 02/26/20 12:00 Vitamin D3 PO DAILY@1200 TALON Heparin Sodium (Porcine) 5,000 unit 02/26/20 08:00 Heparin SQ Q8HR TALON Sodium Chloride 1,000 mls @ 100 mls/hr 02/26/20 03:45 02/26/20 03:59 Saline 0.9% IV 100 mls/hr .Q10H TALON Administration Nitroglycerin 0.4 mg 02/26/20 01:06 Nitrostat SUBLINGUAL Q5M PRN Chest Pain Sodium Chloride 10 ml 02/26/20 09:00 Saline Flush IV BID TALON Intake and Output 02/25/20 02/26/20 02/26/20 22:59 06:59 14:59 Intake Total 0 Balance 0 Intake: Oral 0 Other: Voiding Method Toilet # Voids 1 Weight 76.204 kg 77 kg 02/25/20 23:34 02/25/20 23:34 EKG Interpretations (text) Sinus rhythm with right bundle branch block and PACs Assessment and Plan Assessment: #1 altered mental status #2 anxiety #3 abnormal troponins of unclear significance, no complaints of chest discomfort #4 urinary tract infection #5 productive cough Plan: From cardiology's perspective, we'll obtain a 2-D echo with Doppler to assess cardiac structure and function. We will keep the patient nothing by mouth after midnight tonight and depending on the results of the echocardiogram further recommendations will be made. LUBE ATTENDANT note has been reviewed, I agree with a documented findings and plan of care. Patient was seen and examined.
[2020-02-26] MEDS: busPIRone HCl 10 MG TAB PO SCH (09:59)
[2020-02-26] MEDS: ATORVASTATIN 20 MG TAB PO SCH (09:59)
[2020-02-26] MEDS: HEPARIN SODIUM,PORCINE 5,000 UNIT/ML 1 ML VIAL SQ SCH ×3 (09:59→23:29)
[2020-02-26] MEDS: CHOLECALCIFEROL 400 UNIT TAB PO SCH (13:56)
[2020-02-27 04:40] LABS: Cholesterol 101 mg/dL (<200); HDL Cholesterol 18 mg/dL (40-60); LDL Cholesterol,Calculated 55 mg/dL (0-99); Triglycerides 141 mg/dL (<150)
[2020-02-27] MEDS: busPIRone HCl 10 MG TAB PO SCH (08:36)
[2020-02-27] MEDS: ATORVASTATIN 20 MG TAB PO SCH (08:36)
[2020-02-27] MEDS: HEPARIN SODIUM,PORCINE 5,000 UNIT/ML 1 ML VIAL SQ SCH ×2 (08:36→18:13)
[2020-02-27] MEDS: ALPRAZolam 1 MG TAB PO PRN (08:41)
[2020-02-27] MEDS: SODIUM CHLORIDE 0.9% 1,000 ML IV SCH ×2 (08:47→14:00)
[2020-02-27] MEDS ORDERED: ASPIRIN 325 MG TAB PO SCH (09:00)
[2020-02-27] MEDS: ALBUTEROL NEBULIZED 2.5 MG/3 ML INHALATION SCH ×3 (09:35→20:02)
[2020-02-27] MEDS ORDERED: ALPRAZolam 0.25 MG TAB PO PRN (11:34)
[2020-02-27] MEDS ORDERED: ALPRAZolam 0.5 MG TAB PO PRN (11:34)
[2020-02-27] MEDS ORDERED: ATORVASTATIN 80 MG TAB PO STA (11:34)
[2020-02-27] MEDS ORDERED: SODIUM CHLORIDE 0.9% 1,000 ML in EMPTY BAG 1 BAG IV ONE (11:34)
--- NOTE | 2020-02-27 11:39 | ECHOF ---
Referral Reason:elevated troponin MEASUREMENTS -------- HEIGHT: 162.6 cm WEIGHT: 76.7 kg BP: 135/79 RVIDd: 3.7 cm (< 3.3) IVSd: 1.0 cm (0.6 - 1.1) LVIDd: 4.3 cm (3.9 - 5.3) LVPWd: 1.1 cm (0.6 - 1.1) EDV(Teich): 84 ml IVSs: 1.3 cm LVIDs: 3.6 cm LVPWs: 1.1 cm %IVS Thck: 26 % ESV(Teich): 54 ml EF(Teich): 36 % %FS: 17 % SV(Teich): 30 ml Ao Diam: 2.7 cm (2.0 - 3.7) AV Cusp: 1.3 cm (1.5 - 2.6) LA Diam: 3.4 cm (2.7 - 3.8) MV EXCURSION: 11.800 mm (> 18.000) MV EF SLOPE: 55 mm/s (70 - 150) EPSS: 0.6 cm MV E Ovidio: 0.76 m/s MV DecT: 260 ms MV Dec [place]: 2.9 m/s MV A Ovidio: 1.09 m/s MV E/A Ratio: 0.70 MV PHT: 76 ms TR Vmax: 1.91 m/s TR maxP.52 mmHg RAP: 5.00 mmHg RVSP: 19.52 mmHg FINDINGS -------- Sinus rhythm. This was a technically good study. The left ventricular size is normal. Left ventricular wall thickness is normal. Overall left vent ricular systolic function is normal with, an EF between 55 - 60 %. The right ventricle is normal in size. The left atrial size is normal. The right atrial size is normal. The aortic valve is trileaflet, and appears structurally normal. No aortic stenosis or regurgitation. Mild mitral regurgitation is present. No regurgitation noted Right ventricular systolic pressure is normal at < 35 mmHg. There is no pulmonic regurgitation present. The aortic root size is normal. There is no pericardial effusion. CONCLUSIONS -------- 1. The left ventricular size is normal. 2. Left ventricular wall thickness is normal. 3. Overall left ventricular systolic function is normal with, an EF between 55 - 60 %. 4. The right ventricle is normal in size. 5. The left atrial size is normal. 6. The right atrial size is normal. 7. Mild mitral regurgitation is present. 8. No regurgitation noted HAND II CUTTER: Alondra Hamilton RDCS
[2020-02-27 11:45] VITALS: TEMP 98.8
[2020-02-27] MEDS: CHOLECALCIFEROL 400 UNIT TAB PO SCH (11:50)
[2020-02-27 11:52] LABS: Glucose,Whole Blood 110 mg/dL (75-99)
[2020-02-27] MEDS: BENZONATATE 100 MG CAP PO PRN (11:58)
[2020-02-27] MEDS ORDERED: LIDOCAINE 1% INJ 10MG/ML (20 ML MDV) ONE (13:12)
[2020-02-27] MEDS ORDERED: VERAPAMIL 2.5 MG/ML 2 ML AMP ONE (13:12)
[2020-02-27] MEDS ORDERED: fentaNYL (PF) 50 MCG/ML 2 ML AMP ONE (13:13)
[2020-02-27] MEDS ORDERED: IV FLUID CONTINUATION 900 ML IV ONE (13:29)
[2020-02-27] MEDS ORDERED: fentaNYL (PF) 50 MCG/ML 2 ML AMP IVP ONE (13:33)
[2020-02-27] MEDS ORDERED: LIDOCAINE 1% INJ 10MG/ML (20 ML MDV) SQ ONE (13:35)
[2020-02-27] MEDS ORDERED: VERAPAMIL SYRINGE (5 MG/10 ML) INTRAARTER ONE (13:37)
[2020-02-27] MEDS ORDERED: HEPARIN SODIUM 1,000 UN/ML (10ML VL) ONE (13:42)
[2020-02-27] MEDS ORDERED: HEPARIN SODIUM 1,000 UN/ML (10ML VL) IV ONE (13:43)
[2020-02-27] MEDS ORDERED: IOPAMIDOL-370 100ML BTL INJ ONE (13:50)
[2020-02-27] MEDS ORDERED: RX INFO: IV CONTRAST WAS GIVEN 1 EACH MISC MISCELLANE PRN (14:01)
[2020-02-27] MEDS ORDERED: SODIUM CHLORIDE 0.9% 1,000 ML IV SCH (14:15)
[2020-02-27 14:31] VITALS: BMI 29.5
--- NOTE | 2020-02-27 16:16 | CC ---
CARDIAC CATHETERIZATION REPORT Mrs. Buchanan is a 60-year-old female with known history of hyperlipidemia, who presented to the hospital with symptoms of acute change in mental status with confusion and dizziness. Her troponins were mildly elevated. She had no EKG changes, she was in sinus mechanism. In view of her changes in her presentation, recommendation made regarding cardiac catheterization. The procedures, risks, and complications were discussed with the patient who is in full understanding and agreement. PROCEDURE: Patient was brought to the oil laboratory analyst in a fasting semi-sedated state after receiving fentanyl and Benadryl and achieving moderate conscious sedated state. Using Xylocaine anesthesia and Seldinger technique, a 6-German sheath was introduced in the right radial artery. Selective right and right and left coronary angiography performed using 5-German 3.5 bend right and left Jessica catheter, multiple views of the coronary artery including hemiaxial views were obtained. Following that,. 5-German tight pigtail catheter was introduced in the left ventricle and a 30-degree RODRIGUEZ view of the left ventricle was obtained. Following that, catheter and sheath were removed. Hemostasis was obtained with deployment of a TR band. There was no immediate complication. Patient was returned to her room in stable condition. Of note, the patient received 4500 units of intravenous heparin as well as intra-arterial verapamil. FINDINGS: LEFT MAIN: This is a short size vessel, large in caliber, bifurcating into left circumflex, left anterior descending artery. Left main coronary artery has no evidence of high-grade stenosis. LEFT ANTERIOR DESCENDING CORONARY ARTERY: This is a large-sized vessel, reaching toward the apex giving rise to a diagonal branch. The left anterior descending artery as well as branches have no evidence of obstructive coronary artery disease. LEFT CIRCUMFLEX: This is a large codominant vessel, giving rise to a large obtuse marginal branch, distally giving a PDA and PLV. The left circumflex as well as branches have no evidence of obstructive coronary artery disease. RIGHT CORONARY ARTERY: This is a moderately size vessel, codominant, giving rise to a PDA and PLV distally. The right coronary artery as well as branches have no evidence of obstructive coronary artery disease. LEFT VENTRICULOGRAM: Left ventriculogram was performed in 30-degree RODRIGUEZ view and revealed normal left ventricular size and systolic function, ejection fraction was 60%. There was no significant mitral regurgitation. HEMODYNAMICS: There was no gradient across the aortic valve. The left ventricular end- diastolic pressure was 12-14 mmHg. CONCLUSION: 1. Normal coronary arteries. 2. Normal left ventricular size and systolic function. RECOMMENDATION: In view of finding anatomy, I recommend continue medical therapy with aggressive risk modifications being initiated. Those findings and recommendation were discussed with the patient and her family and they are in full understanding and agreement. I see no evidence to suggest coronary artery disease or evidence of myocardial necrosis. Duration of procedure is 17 minutes. MMODL / IJN: [id number] /
[2020-02-27 17:52] VITALS: RESP 16
[2020-02-27 18:38] VITALS: BP 120/72; PULSE 88
--- NOTE | 2020-02-27 21:00 | P.DS ---
Providers Date of admission: 02/26/20 01:06 Expected date of discharge: 02/27/20 Attending physician: Dominick Muller MD Consults: 02/26/20 01:06 Consult Physician Routine Consulting Provider: Toño Gan Consult Reason/Comments: Elevated troponin. Possible NSTEMI Do you want consulting provider notified?: Yes Primary care physician: [facility] Course: Discharge Diagnosis: Elevated troponin, with normal coronaries on cath Acute anxiety with anxiety disorder Acute encepahlopathy due to drug reaction GERD [facility] Course: Patient is a 60-year-old female with a history of GERD, asthma, hemorrhoids, and severe anxiety who initially presented to the ER secondary to increased confusion, forgetfulness, and sleeping more over the last 3-4 days. On arrival to the ER she was slightly tachycardic with a pulse rate of 103. Initial laboratory analysis was unremarkable other than elevated troponin at 0.098. She is admitted for workup of her positive troponin. He continued to trend and were flat. Cholesterol profile is within normal limits. TSH was normal. Echo with EF 55-60%, mild MR. She underwent cardiac catheterization which demonstrated normal coronary arteries with normal left ventricular systolic function, EF of 60%. Patient's reports that she is currently out of Xanax. She has been very accusatory to her and her son about the Xanax being missing. is afraid she has been unintentionally misusing her Xanax. The patient is unable to recall how often she is dosing herself or where she has placed her Xanax. We did a [place] [employer] reviewing discovered that she last filled her Xanax on 02/18 and had 90 tablets filled. She currently does not believe she took all 90 tablets, and that she misplaced them. We discussed that she is likely becoming confused secondary to the Xanax as she started this approximately 6 weeks ago and has been worse since that time. She also came off of BuSpar in November as she felt it was not helping her. However per her and the she has had a rapid increase in her anxiety over the last 4-6 weeks. We discussed that likely her BuSpar was likely effective and she did not realize how effective it was until it completely came out of her system. She is willing to retry the BuSpar. I again reinforced with her the importance of cognitive behavioral therapy as part of her anxiety treatment. She was given a list of therapists in the area and her ensures that she will follow-up. We discussed that Xanax is likely not a safe medication for her at this point in time, patient and are in agreement. She will trial off Xanax and will resume BuSpar. Initially she will start at 5 mg twice daily and increase to 10 mg twice daily after 7 days. She will follow-up with Dr. Leyva her primary care physician, and establish with a therapist. She does not need to follow-up with cardiology after having a clean cath, other than for post cath check. Patient seen and examined at bedside. Denies any chest pain or shortness of breath. Discussion as noted above. Vital signs reviewed and stable. General: non toxic, no distress, appears at stated age Derm: warm, dry Head: atraumatic, normocephalic, symmetric Eyes: EOMI, no lid lag, anicteric sclera Mouth: no lip lesion, mucus membranes moist Cardiovascular: S1S2 reg, no murmur, positive posterior tibial pulse bilateral, Lungs: CTA bilateral, no rhonchi, no rales , no accessory muscle use Abdominal: soft, nontender to palpation, no guarding, no appreciable organomegaly Ext: no gross muscle atrophy, no edema, no contractures Neuro: CN II-XI grossly intact, no focal neuro deficits Psych: Alert, oriented, appears anxious and tearful A total of 35 minutes of time were spent preparing this complex discharge summary . Patient Condition at Discharge: Stable Plan - Discharge Summary Discharge Rx Participant: No New Discharge Prescriptions: New Aspirin 81 mg PO DAILY #30 tab Atorvastatin [Lipitor] 20 mg PO DAILY #30 tab Cefpodoxime Proxetil [Vantin] 100 mg PO Q12HR #6 tab busPIRone HCl [Buspar] 10 mg PO BID #60 tab Continue Cholecalciferol [Vitamin D3] 400 unit PO DAILY Albuterol Inhaler [Ventolin Hfa Inhaler] 1 puff INHALATION RT-TID Cranberry Fruit Extract [Cranberry] 500 mg PO DAILY Omeprazole [PriLOSEC] 20 mg PO AC-BID [place]-3 Fatty Acids/Fish Oil [Fish Oil 1,000 mg Softgel] 1 cap PO DAILY Discontinued ALPRAZolam [Xanax] 0.25 mg PO TID PRN PRN Reason: Anxiety Discharge Medication List Albuterol Inhaler [Ventolin Hfa Inhaler] 1 puff INHALATION RT-TID 01/13/20 [History] Cholecalciferol [Vitamin D3] 400 unit PO DAILY 01/13/20 [History] Cranberry Fruit Extract [Cranberry] 500 mg PO DAILY 01/13/20 [History] Aspirin 81 mg PO DAILY #30 tab 02/26/20 [Rx] Atorvastatin [Lipitor] 20 mg PO DAILY #30 tab 02/26/20 [Rx] [place]-3 Fatty Acids/Fish Oil [Fish Oil 1,000 mg Softgel] 1 cap PO DAILY 02/26/20 [History] Omeprazole [PriLOSEC] 20 mg PO AC-BID 02/26/20 [History] Cefpodoxime Proxetil [Vantin] 100 mg PO Q12HR #6 tab 02/27/20 [Rx] busPIRone HCl [Buspar] 10 mg PO BID #60 tab 02/27/20 [Rx] Follow up Appointment(s)/Referral(s): Mariela Merritt MD [STAFF PHYSICIAN] - 1 Week (Patient to make follow up appointment as the office is closed at time of discharge. Ensure that the office is aware this is a follow up from the hospital and post heart cath.) Santi Lora MD [Primary Care Provider] - 1-2 days (Patient to make follow up appointment as the office is closed at time of discharge. Ensure that the office is aware this is a follow up from the hospital.) Patient Instructions/Handouts: *Surgery [facility] - After Heart Catheterization - Radiation Control Technician Instructions Activity/Diet/Wound Care/Special Instructions: Activity: As tolerated Diet: Heart healthy Discharge Disposition: HOME SELF-CARE
[2020-02-28] MEDS ORDERED: ASPIRIN 81 MG PO SCH (09:00)
== END 2020-02-27 20:31 | disposition home or self-care (01) | DRG 880 ==
LOC: EC 22:56 → 3SCARD 02-26 01:06
PROVIDERS: ADMIT Internal Medicine; ATTEND Internal Medicine
PROC: B2151ZZ Fluoroscopy of Left Heart using Low Osmolar Contrast (ICD-10-PCS; principal; 2020-02-26)
PROC: B2111ZZ Fluoroscopy of Multiple Coronary Arteries using Low Osmolar Contrast (ICD-10-PCS; principal; 2020-02-26)
DX: F41.0 Panic disorder [episodic paroxysmal anxiety] (principal); N39.0 Urinary tract infection, site not specified; E78.5 Hyperlipidemia, unspecified; T42.4X5A Adverse effect of benzodiazepines, initial encounter; R79.89 Other specified abnormal findings of blood chemistry; R40.2142 Coma scale, eyes open, spontaneous, at arrival to emergency department; R40.2362 Coma scale, best motor response, obeys commands, at arrival to emergency department; R40.2252 Coma scale, best verbal response, oriented, at arrival to emergency department; B96.89 Other specified bacterial agents as the cause of diseases classified elsewhere; J45.909 Unspecified asthma, uncomplicated; K21.9 Gastro-esophageal reflux disease without esophagitis; R13.10 Dysphagia, unspecified; I45.10 Unspecified right bundle-branch block; Z79.899 Other long term (current) drug therapy; Z87.19 Personal history of other diseases of the digestive system; Z90.49 Acquired absence of other specified parts of digestive tract; Z90.89 Acquired absence of other organs; Z86.69 Personal history of other diseases of the nervous system and sense organs; Z98.890 Other specified postprocedural states; Z80.9 Family history of malignant neoplasm, unspecified; Y92.009 Unspecified place in unspecified non-institutional (private) residence as the place of occurrence of the external cause; Z82.49 Family history of ischemic heart disease and other diseases of the circulatory system
CPT/HCPCS: 36415; 70450; 71046; 80053; 80061; 80306; 80320; 81001; 82140; 84443; 84484; 85025; 85610; 85730; 87077; 87086; 87186; 93005; 93306; 93458; 94640; 96372; 99285

== ENCOUNTER → 2020-07-21 | Outpatient (CLI) | payer OTHER ==
--- NOTE | 2020-07-23 09:40 | MM ---
Reason for exam: screening (asymptomatic). Last mammogram was performed 1 year and 4 months ago. History: Patient is postmenopausal. Physical Findings: A clinical breast exam by your physician is recommended on an annual basis and results should be correlated with mammographic findings. MG Screening Mammo w CAD Bilateral CC and MLO view(s) were taken. Prior study comparison: March 07, 2019, bilateral MG screening mammo w CAD. March 31, 2017, bilateral MG screening mammo w CAD. There are scattered fibroglandular densities. Developing asymmetry. This finding is changed when compared with previous exams. ASSESSMENT: Incomplete: need additional imaging evaluation, BI-RAD 0 RECOMMENDATION: Special view mammogram of the right breast. If lesion persists on supplemental views, image directed ultrasound is recommended. [facility] will attempt to contact patient to return for supplemental views and ultrasound if indicated.
== END | disposition home or self-care (01) ==
LOC: RADMAMWWP 12:21
PROVIDERS: ATTEND Obstetrics & Gynecology
DX: Z12.31 Encounter for screening mammogram for malignant neoplasm of breast (principal)
CPT/HCPCS: 77067

== ENCOUNTER → 2020-07-24 | Outpatient (CLI) | payer OTHER ==
--- NOTE | 2020-07-24 10:00 | MM ---
Reason for exam: additional evaluation requested from abnormal screening. Last mammogram was performed less than 1 month ago. History: Patient is postmenopausal. Physical Findings: Nurse did not find any significant physical abnormalities on exam. MG 3D Work Up W/Cad RT Spot compression CC, spot compression MLO, and LM view(s) were taken of the right breast. Prior study comparison: July 21, 2020, bilateral MG screening mammo w CAD. March 07, 2019, bilateral MG screening mammo w CAD. The breast tissue is heterogeneously dense. This may lower the sensitivity of mammography. There is no discrete abnormality on compression. These results were verbally communicated with the patient and result sheet given to the patient on 07/24/20. ASSESSMENT: Probably benign, BI-RAD 3 RECOMMENDATION: Follow-up diagnostic mammogram of the right breast in 6 months.
== END | disposition home or self-care (01) ==
LOC: RADMAMWWP 08:16
PROVIDERS: ATTEND Obstetrics & Gynecology
DX: R92.8 Other abnormal and inconclusive findings on diagnostic imaging of breast (principal)
CPT/HCPCS: 77061; 77065

== ENCOUNTER → 2021-01-22 | Outpatient (CLI) | payer OTHER ==
--- NOTE | 2021-01-25 10:14 | MM ---
Reason for exam: follow-up at short interval from prior study. Last mammogram was performed 6 months ago. History: Patient is postmenopausal. Physical Findings: Nurse did not find any significant physical abnormalities on exam. MG 3D Diag Mammo W/Cad RT CC and MLO view(s) were taken of the right breast. Prior study comparison: July 24, 2020, right breast MG 3d work up w/cad RT. July 21, 2020, bilateral MG screening mammo w CAD. There are scattered fibroglandular densities. Previous focal asymmetry upper outer anterior depth appears benign asymmetry/overlapping, stable. These results were verbally communicated with the patient and result sheet given to the patient on 01/22/21. ASSESSMENT: Benign, BI-RAD 2 RECOMMENDATION: Return to routine screening mammogram schedule for both breasts. Back on schedule.
== END | disposition home or self-care (01) ==
LOC: RADMAMWWP 12:49
PROVIDERS: ATTEND Obstetrics & Gynecology
DX: R92.8 Other abnormal and inconclusive findings on diagnostic imaging of breast (principal)
CPT/HCPCS: 77061; 77065